=== PATIENT | female | born 1965 | race African-American/Black ===

== ENCOUNTER → 2016-08-07 | Outpatient (CLI) | payer OTHER ==
--- NOTE | ~2016-08-07 | US128 ---
[id number] [facility]. [facility] [address]. [place], [place] [address] [id number] O MR#: [id number] Acc #: [id number] NAME: ANURADHA BULLARD : 1965 SEX: F STUDY DATE/TIME: 08/07/2016 13:39 UNIT: CGUS ROOM: STUDY DESCRIPTION: US Thyroid Attending Physician: Rashad Cervantes M.D. Referring Physician: Rashad Cervantes M.D. Ordering Physician: Rashad Cervantes M.D. Primary Care Physician: Christina Porras M.D. MEDICAL IMAGING REPORT This report is preliminary unless electronic signature is present EXAM Thyroid ultrasound 08/07/2016 COMPARISON Thyroid ultrasound 03/14/2016. HISTORY Follow up for known thyroid nodules. FINDINGS On the right, there are 1 or 2 small subcentimeter lesions, the largest about 5 mm in size. The right lobe of the gland is otherwise normal in vascularity. On the left, there is a large nearly purely cystic lesion in the midpole of the gland measuring 2.1 x 1.3 x 1.5 cm. On the prior exam, it measured about 2.3 x 1.6 x 1.7 cm and is clearly if anything slightly diminished in size since that time. There is a solid lesion at the lower pole about 8 x 6 x 6 mm that is also unchanged since the prior study. IMPRESSION Dominant left lobe cystic nodule and other subcentimeter nodules are all stable when compared to the exam of 03/14/2016. Dictated by... Cezar Brennan M.D. THIS IS AN ELECTRONICALLY VERIFIED REPORT Cezar Brennan M.D. at 08/08/2016 3:36 PM JESSICA/ani TD: 08/08/2016 06:11 JOB #: [id number] MEDICAL IMAGING REPORT COPY
== END | disposition home or self-care (01) ==
LOC: CGUS 12:57
DX: E04.2 Nontoxic multinodular goiter (principal)
CPT/HCPCS: 76536